=== PATIENT | female | born 1995 | race Caucasian/White ===

== ENCOUNTER 2020-05-19 06:55 | Outpatient (NON) | payer OTHER, SELFPAY ==
[2020-05-19 22:34] LABS: SARS-CoV-2 RNA PCR Negative
== END 2020-05-19 06:56 ==
PROVIDERS: PCP Family Medicine; Visit Provider Family Medicine
DX: R05 Cough (principal); R09.81 Nasal congestion; J20.9 Acute bronchitis, unspecified; Z20.822 Contact with and (suspected) exposure to COVID-19
CPT/HCPCS: C9803; U0003; U0005

== ENCOUNTER 2020-07-30 01:09 | Emergency (ER) | payer OTHER, SELFPAY ==
[2020-07-30 01:08] VITALS: BP 125/89; PULSE 111; RESP 24; O2SAT 98
[2020-07-30 01:15] VITALS: RESP 24; O2SAT 98
--- NOTE | 2020-07-30 01:18 | ED.GENADULT ---
HPI - General Adult General Chief complaint: Unspecified Stated complaint: ate edible/dizzy and lightheaded Time Seen by Provider: 07/30/20 01:16 History of Present Illness HPI narrative: She took a cannabis edible then began to feel dizzy. She also had a dry mouth. She then began to feel like she could not breath and was concerned that she may be having an allergic reaction. Now she thinks that she may just be anxious. Related Data Allergies Allergy/AdvReac Type Severity Reaction Status Date / Time No Known Allergies Allergy Verified 07/30/20 01:24 Review of Systems Review of Systems: All systems reviewed & are unremarkable except as noted in HPI and below Constitutional: Constitutional: Denies fever(s) Eyes: Eyes: Reports no additional eye complaints ENT: Reports as per HPI Cardiovascular: Cardiovascular: Denies chest pain Respiratory: Respiratory: Reports as per HPI Gastrointestinal: Gastrointestinal: Reports nausea and Denies vomiting [facility] Past Medical History Medical History (Updated 08/03/20 @ 19:17 by Hussein Strauss MD) Anxiety Social History Social History (Updated 08/03/20 @ 19:16 by Hussein Strauss MD) Smoking status: Never smoker Substance use: current Substance use type: marijuana Gender identity (if verbalized by the patient): Female Exam Const: General: healthy appearing, no acute distress and alert Orientation/consciousness: patient oriented x3 HENMT: Head: normal to inspection Face and sinus: dry mucous membranes Eyes: Conjunctivae: conjunctival abnormality bilateral conjunctival injection Pupils: Equal, round and reactive pupils present Neck: Neck: normal visual inspection and no lymphadenopathy Resp: Effort & Inspection: normal respiratory effort Auscultation: clear to auscultation bilaterally, no rales, no rhonchi and no wheezes Cardio: Jugular venous distension: no JVD Rate: tachycardic Rhythm: regular rhythm Heart sounds: no murmurs GI: Inspection: non-distended GI Palp: Yes Soft to palpation and No Tenderness to palpation present (GI) Skin: General skin exam: normal color Neuro: General: patient oriented x3, moves all extremities and CN's II-XI intact bilaterally Speech: normal speech Extrem: General: no edema Psych: Appearance: well kempt Affect: Anxious affect present Course Vital Signs Vital signs: Vital Signs Pulse Rate 111 H 07/30/20 01:08 Respiratory Rate 24 H 07/30/20 01:08 Blood Pressure 125/89 07/30/20 01:08 Pulse Oximetry 98 07/30/20 01:08 Pulse Rate 82 07/30/20 02:57 Respiratory Rate 18 07/30/20 02:57 Blood Pressure 116/59 L 07/30/20 02:57 Pulse Oximetry 98 07/30/20 02:57 Medical Decision Making MDM Narrative Medical decision making narrative: Symptoms resolved. Almost certainly anxiety and paranoia due to the edible Medical Records Medical records reviewed: Yes I reviewed the external patient's medical records. Vital Signs Vital Signs: Vital Signs Pulse Rate 111 H 07/30/20 01:08 Respiratory Rate 24 H 07/30/20 01:08 Blood Pressure 125/89 07/30/20 01:08 Pulse Oximetry 98 07/30/20 01:08 Pulse Rate 82 07/30/20 02:57 Respiratory Rate 18 07/30/20 02:57 Blood Pressure 116/59 L 07/30/20 02:57 Pulse Oximetry 98 07/30/20 02:57 Discharge Plan Discharge Clinical Impression: Adverse reaction to cannabis Patient Disposition: Home, Self-Care Condition: Stable Instructions: Cannabis Abuse (ED) Follow-up/Referrals: Shola,Elijah Martinez NP [Primary Care Provider] -
[2020-07-30] MEDS: ONDANSETRON HCL ODT 4 MG TABLET PO (01:44)
[2020-07-30 02:57] VITALS: BP 116/59; PULSE 82; RESP 18; O2SAT 98
== END 2020-07-30 02:55 | disposition home or self-care (01) ==
PROVIDERS: Emergency Provider Emergency Medicine; PCP Nurse Practitioner Family
DX: F12.90 Cannabis use, unspecified, uncomplicated (principal)
CPT/HCPCS: 99283; A9270